=== PATIENT | female | born 2000 | race Caucasian/White ===

== ENCOUNTER 2021-07-04 14:43 | Observation (INO) ==
--- NOTE | 2021-07-04 15:10 | Emergency Department Note ---
Impression & Plan Acute appendicitis with localized peritonitis ED Provider Note NAME: NIKI SABILLON AGE: 20 SEX: F : 2000 ARRIVES VIA: Walk-In INFORMANT: Patient, ED PROVIDER(S): Cory Ramírez MD Chief Complaint: Abdominal pain HPI: Patient presents due to concern for sharp right lower quadrant pain which has been ongoing for several months but is certainly worsened over the last several weeks. The patient states that is been fairly constant. The patient was most recently seen back in May did have a pelvic ultrasound which was unremarkable. The patient states that when she was at home she is also vahe luated by [employer] and had an unremarkable ultrasound at that time as well. Patient states that fiber and Tums make her symptoms worse but that laxatives sometimes improve her symptoms. The patient has had some intermittent constipation type symptoms. Patient denies any dysuria or blood in the urine. Patient does have regular menstrual periods but most recently had her was 3 weeks ago. Patient denies any current vaginal bleeding or discharge. Patient has had nausea secondary to pain but denies any vomiting. The patient states that her pain was significantly worse this morning. Patient denies any recent trauma falls heavy lifting or increased activity. Patient does state that palpation does make it worse. Patient did present May 26 with similar symptoms. States patient's blood work at that time showed a normal white count H&H and platelet count. Kidney function was unremarkable. Urinalysis did not show obvious signs of infection. Patient did have a pelvic ultrasound which showed mildly thickened endometrium as well as small to moderate volume of free fluid in the cul-de-sac nonspecific. There are no acute abnormalities identified at that time. ROS: See HPI for pertinent positives and negatives. A total of 10 systems were reviewed and otherwise negative. Past medical history: See below Surgical history: See below Social history: See below Physical Exam: GENERAL: NAD, wearing a mask, non-toxic. EYE EXAM: Normal conjunctiva. PERRL, no anisocoria and EOM's grossly intact w/o pain. NECK: Supple, no nuchal rigidity, no adenopathy, non-tender. No signs of men ingismus. LUNGS: Clear to auscultation. Normal chest wall mechanics. HEART: NSR, no MRG. ABDOMEN: Abdomen soft, moderate right lower quadrant pain, normo-active bowel sounds, no masses, no rebound or guarding. BACK: No CVA TTP. SKIN: No rashes and no bruising. UPPER EXTREMITIES: Upper extremities are grossly normal. LOWER EXTREMITIES: Grossly normal, no edema. NEURO EXAM: A&O x3, cranial nerves II-XII grossly intact, normal speech, moves all 4 extremities on command w/o issue. Differential diagnoses: Appendicitis, ovarian cyst, ovarian torsion, ectopic , TOA, PID, infections, diverticulitis, UTI, obstruction, mesenteric ischemia, aortic pathology, inflammatory bowel disease, renal colic, PUD, pancreatitis, biliary pathology, hernia, volvulus, constipation, as well as other pathologies. Course: Patient was seen and evaluated the bedside. Full history physical exam was pe rformed. Imaging Studies: See Below Cardiac monitoring: An order was placed for continuous cardiac monitoring. The monitor shows a rate of 67 with sinus rhythm. MDM: Patient presents due to concern for persistent right lower quadrant pain ongoing for several months with the patient has noted it to be acutely worse in the last several days. Blood work was obtained along with CT abdomen pelvis and patient was treated symptomatically with antiemetics, pain medication and IV fluids. Patient is white count of 16 with a normal H&H and platelet count. Kidney function is unremarkable. Very mild hypokalemia. LFTs unremarkable. Urinalysis negative for obvious infection with a negative test. Patient CT does show concern for mild acute appendicitis. The patient was ordered Mefoxin and I did speak with the on-call general surgeon Dr. Tyler. Patient was taken to the operating room for definitive treatment. Past Med/Surg History Medical History Acne Surgical History No pertinent past surgical history Social History Smoking Status: Never smoker Preferred Language: Armenian current occupational status: student Feels Safe at Home: Yes Immunizations: Vaccinated for COVID-19 Allergies Allergies Allergy/AdvReac Type Severity Reaction Status Date / Time No Known Allergies Allergy Unverified 07/04/21 15:31 Home Meds Home Medications Medication Instructions Recorded Confirmed calcium carbonate 300 mg (750 mg) 300 mg PO BID 05/26/21 07/04/21 chewable tablet (Tums) spironolactone 50 mg tablet 50 mg PO QAM 05/26/21 07/04/21 Previous Rx's Medication Instructions Recorded famotidine 20 mg tablet (Pepcid) 20 mg PO BID PRN #60 tab 05/26/21 Results & Data (ED) Vital Signs Vital Signs - 24 hr 07/04/21 14:48 07/04/21 15:20 07/04/21 17:52 Temperature 36.5 C 37.4 C Temperature Source Oral Oral Pulse Rate 97 H 86 Pulse Rate [Apical] Pulse Rate [Finger] 86 106 H Pulse Rhythm [Apical] Pulse Rhythm [Finger] Regular Pulse Strength [Apical] Pulse Strength [Finger] Normal Respiratory Rate 16 12 20 Respiratory Effort / Characteristics Non-Labored Spontaneous Respiratory Depth Normal Respiratory Pattern Regular Blood Pressure 143/89 H Blood Pressure [Left Arm] 146/99 H 111/82 Blood Pressure [Right Arm] Blood Pressure Mean 107 Blood Pressure Mean [Left Arm] 114 91 Blood Pressure Mean [Right Arm] Blood Pressure Position [Left Arm] Semi-fowlers Blood Pressure Position [Right Arm] Pulse Oximetry 99 96 99 Oxygen Delivery Method Room Air Room Air Room Air Oxygen Flow Rate Sepsis Recent Fever Within 48 Hours No Sepsis New/Unexplained Change in Mental Status No Sepsis Action Taken by Nursing No Action Required 07/04/21 19:18 07/04/21 19:20 07/04/21 19:30 Temperature 36.0 C L Temperature Source Temporal Artery Scan Pulse Rate Pulse Rate [Apical] 85 72 59 L Pulse Rate [Finger] Pulse Rhythm [Apical] Regular Regular Regular Pulse Rhythm [Finger] Pulse Strength [Apical] Normal Normal Normal Pulse Strength [Finger] Respiratory Rate 14 16 20 Respiratory Effort / Characteristics Non-Labored Spontaneous Non-Labored Spontaneous Non-Labored Spontaneous Respiratory Depth Normal Normal Normal Respiratory Pattern Regular Regular Regular Blood Pressure Blood Pressure [Left Arm] Blood Pressure [Right Arm] 110/72 117/75 121/82 Blood Pressure Mean Blood Pressure Mean [Left Arm] Blood Pressure Mean [Right Arm] 84 89 95 Blood Pressure Position [Left Arm] Blood Pressure Position [Right Arm] Lying Lying Lying Pulse Oximetry 100 100 100 Oxygen Delivery Method Oxymask Oxymask Oxymask Oxygen Flow Rate 6 6 2 Sepsis Recent Fever Within 48 Hours Sepsis New/Unexplained Change in Mental Status Sepsis Action Taken by Nursing 07/04/21 19:40 07/04/21 19:50 07/04/21 20:00 Temperature 36.7 C Temperature Source Oral Pulse Rate Pulse Rate [Apical] 60 68 65 Pulse Rate [Finger] Pulse Rhythm [Apical] Regular Regular Regular Pulse Rhythm [Finger] Pulse Strength [Apical] Normal Normal Normal Pulse Strength [Finger] Respiratory Rate 16 14 16 Respiratory Effort / Characteristics Non-Labored Spontaneous Non-Labored Spontaneous Non-Labored Spontaneous Respiratory Depth Normal Normal Normal Respiratory Pattern Regular Regular Regular Blood Pressure Blood Pressure [Left Arm] Blood Pressure [Right Arm] 125/80 120/82 123/77 Blood Pressure Mean Blood Pressure Mean [Left Arm] Blood Pressure Mean [Right Arm] 95 94 92 Blood Pressure Position [Left Arm] Blood Pressure Position [Right Arm] Lying Lying Lying Pulse Oximetry 98 98 100 Oxygen Delivery Method Room Air Room Air Room Air Oxygen Flow Rate Sepsis Recent Fever Within 48 Hours Sepsis New/Unexplained Change in Mental Status Sepsis Action Taken by [facility] Medications Current Medication List: was personally reviewed by me Laboratory Data Attestation: I reviewed the patient's lab results. Result diagrams: 07/04/21 15:11 07/04/21 15:11 Lab Results 07/04/21 07/04/21 07/04/21 Range/Units 15:11 15:11 15:11 WBC 16.49 H (4.8-10.8) K/uL RBC 4.80 (4.2-5.4) M/uL Hgb 13.5 (12.0-16.0) g/dL Hct 39.6 (37-47) % MCV 82.5 (80-100) fL MCH 28.1 (25-34) pg MCHC 34.1 (32-36) g/dL RDW Std Deviation 37.6 (36.4-46.3) fL RDW Coeff of Gena 12.5 (11.5-14.5) % Plt Count 270 (130-400) K/uL MPV 11.7 H (7.4-10.4) fL Immature Gran % (Auto) 0.1 % Neut % (Auto) 84.3 % Lymph % (Auto) 10.7 % [place] % (Auto) 4.5 % Eos % (Auto) 0.2 % Baso % (Auto) 0.2 % Neut # (Auto) 13.90 H (1.4-6.5) K/uL Lymph # (Auto) 1.76 (1.2-3.4) K/uL [place] # (Auto) 0.75 H (0.11-0.59) K/uL Eos # (Auto) 0.03 (0-0.5) K/uL Baso # (Auto) 0.03 (0-0.2) K/uL Immature Gran # (Auto) 0.02 (0.00-0.02) K/uL Sodium 135 L (136-145) mmol/L Potassium 3.4 L (3.5-5.1) mmol/L Chloride 101 (98-107) mmol/L Carbon Dioxide 26 (21-32) mmol/L Anion Gap 8 (3-11) BUN 12 (6-23) mg/dl Creatinine 1.00 (0.6-1.2) mg/dl Est Cr Clr Drug Dosing 81.8 ml/min Est GFR ( Amer) 93.3 ml/min Est GFR (Non-Af Amer) 80.5 ml/min BUN/Creatinine Ratio 12.0 (10-20) Glucose 113 H (70-99(Fasting)) mg/dl Calcium 9.1 (8.5-10.1) mg/dl Total Bilirubin 0.4 (0.2-1.0) mg/dl AST 17 (13-39) U/L ALT 11 (7-52) U/L Alkaline Phosphatase 72 (34-104) U/L Total Protein 7.6 (6.0-8.3) gm/dl Albumin 4.7 (3.4-5.0) gm/dl Globulin 2.9 (2.5-4.0) gm/dl Albumin/Globulin Ratio 1.6 (0.9-2) Lipase 17 (11-82) U/L Urine Color Yellow Urine Appearance Clear (Clear) Urine pH 7.0 (4.5-7.5) Ur Specific [place] 1.005 (1.000-1.030) Urine Protein Negative (Negative) Urine Glucose (UA) Negative (Negative) Urine Ketones Negative (Negative) Urine Blood Trace H (Negative) Urine Nitrite Negative (Negative) Urine Bilirubin Negative (Negative) Urine Urobilinogen Negative (Negative) Ur Leukocyte Esterase Negative (Negative) Urine WBC (Auto) 1-5 (0-5) /hpf Urine RBC (Auto) 0-4 (0-4) /hpf U Hyaline Cast (Auto) 1-5 (0-5) /lpf U Epithel Cells (Auto) >30 H (0-5) /lpf Urine Bacteria (Auto) Negative (Negative) Urine Test (Negative) SARS-CoV-2, RNA, NAAT (NEGATIVE) 07/04/21 07/04/21 Range/Units 15:11 17:00 WBC (4.8-10.8) K/uL RBC (4.2-5.4) M/uL Hgb (12.0-16.0) g/dL Hct (37-47) % MCV (80-100) fL MCH (25-34) pg MCHC (32-36) g/dL RDW Std Deviation (36.4-46.3) fL RDW Coeff of Gena (11.5-14.5) % Plt Count (130-400) K/uL MPV (7.4-10.4) fL Immature Gran % (Auto) % Neut % (Auto) % Lymph % (Auto) % [place] % (Auto) % Eos % (Auto) % Baso % (Auto) % Neut # (Auto) (1.4-6.5) K/uL Lymph # (Auto) (1.2-3.4) K/uL [place] # (Auto) (0.11-0.59) K/uL Eos # (Auto) (0-0.5) K/uL Baso # (Auto) (0-0.2) K/uL Immature Gran # (Auto) (0.00-0.02) K/uL Sodium (136-145) mmol/L Potassium (3.5-5.1) mmol/L Chloride (98-107) mmol/L Carbon Dioxide (21-32) mmol/L Anion Gap (3-11) BUN (6-23) mg/dl Creatinine (0.6-1.2) mg/dl Est Cr Clr Drug Dosing ml/min Est GFR ( Amer) ml/min Est GFR (Non-Af Amer) ml/min BUN/Creatinine Ratio (10-20) Glucose (70-99(Fasting)) mg/dl Calcium (8.5-10.1) mg/dl Total Bilirubin (0.2-1.0) mg/dl AST (13-39) U/L ALT (7-52) U/L Alkaline Phosphatase (34-104) U/L Total Protein (6.0-8.3) gm/dl Albumin (3.4-5.0) gm/dl Globulin (2.5-4.0) gm/dl Albumin/Globulin Ratio (0.9-2) Lipase (11-82) U/L Urine Color Urine Appearance (Clear) Urine pH (4.5-7.5) Ur Specific [place] (1.000-1.030) Urine Protein (Negative) Urine Glucose (UA) (Negative) Urine Ketones (Negative) Urine Blood (Negative) Urine Nitrite (Negative) Urine Bilirubin (Negative) Urine Urobilinogen (Negative) Ur Leukocyte Esterase (Negative) Urine WBC (Auto) (0-5) /hpf Urine RBC (Auto) (0-4) /hpf U Hyaline Cast (Auto) (0-5) /lpf U Epithel Cells (Auto) (0-5) /lpf Urine Bacteria (Auto) (Negative) Urine Test Negative (Negative) SARS-CoV-2, RNA, NAAT NEGATIVE (NEGATIVE) Administered Medications Discontinued Medications Bupivacaine HCl (Bupivacaine 0.5 % 5 Mg/1 Ml Mpf 30ml Vial) Confirm Administered Dose 30 ml .ROUTE .STK-MED ONE Stop: 07/04/21 18:19 Last Admin: 07/04/21 19:00 Dose: 30 ml Documented by: [id number] Epinephrine HCl (Epinephrine Inj 1 Mg/Ml Amp) Confirm Administered Dose 1 mg .ROUTE .STK-MED ONE Stop: 07/04/21 18:19 Last Admin: 07/04/21 19:00 Dose: 0.15 mg Documented by: [id number] Sodium Chloride (Nss) 500 mls @ 999 mls/hr IV .Q31M STA Stop: 07/04/21 16:25 Last Infusion: 07/04/21 17:38 Dose: 0 mls/hr Documented by: [id number] Admin: 07/04/21 16:05 Dose: 999 mls/hr Documented by: [id number] Cefoxitin Sodium (Mefoxin) 2,000 mg in 60 mls @ 100 mls/hr IV NOW STA Stop: 07/04/21 17:34 Last Admin: 07/04/21 17:10 Dose: 100 mls/hr Documented by: [id number] Acetaminophen (Ofirmev) 1,000 mg in 100 mls @ 400 mls/hr IV NOW STA Stop: 07/04/21 17:13 Last Infusion: 07/04/21 17:37 Dose: 0 mls/hr Documented by: [id number] Admin: 07/04/21 17:10 Dose: 400 mls/hr Documented by: [id number] Ioversol (Optiray 320 100ml) 95 ml IV ONCE ONE Stop: 07/04/21 16:20 Last Admin: 07/04/21 16:21 Dose: 95 ml Documented by: [id number] Morphine Sulfate (Morphine Sulfate 4 Mg/Ml 1 Ml Carp\Vial) 4 mg IV NOW STA Stop: 07/04/21 15:56 Last Admin: 07/04/21 16:05 Dose: 4 mg Documented by: [id number] Ondansetron HCl (Ondansetron Inj 2 Mg/Ml 2 Ml Vial) 4 mg IV NOW STA Stop: 07/04/21 15:56 Last Admin: 07/04/21 16:05 Dose: 4 mg Documented by: [id number] Imaging Data Radiologist's Impression: Abdomen/Pelvis CT 07/04/21 15:55 CT SCAN OF THE ABDOMEN AND PELVIS WITH IV CONTRAST CLINICAL HISTORY: Right lower quadrant abdominal pain. COMPARISON STUDY: Pelvic ultrasound dated 05/26/2021. TECHNIQUE: Following the IV administration of 95 cc of Optiray 320, CT scan of the abdomen and pelvis is performed from the lung bases to the proximal femora. Images are reviewed in the axial, sagittal, and coronal planes. IV contrast was administered without complication. A dose lowering technique was utilized adhering to the principles of ALARA. CT DOSE: 243.44 mGy.cm FINDINGS: Lung bases: The heart is normal in size and without pericardial effusion. The lung bases are clear. Liver: The contrast-enhanced liver is normal in size, contour, and attenuation. There is no intrahepatic biliary ductal dilatation. The hepatic veins and portal veins are patent. Gallbladder: Unremarkable. Spleen: Normal in size and attenuation. Pancreas: Unremarkable. Adrenal glands: Unremarkable. Kidneys: The contrast enhanced kidneys are normal in size and without hydronephrosis. The kidneys enhance symmetrically. Abdominal vasculature: The abdominal aorta is normal in course and caliber. Bowel: There is no bowel obstruction. Mild fecal retention is seen throughout the colon. The appendix is dilated and fluid-filled measuring up to 1.0 cm as seen on axial image #260. The appendiceal wall is thickened and hyperemic and there is mild pericalyceal inflammation. Findings are consistent with acute appendicitis. There is no organized fluid collection to suggest abscess. Peritoneum: There is no intraperitoneal free air or abdominal ascites. Lymphadenopathy: None. Pelvic viscera: The bladder, uterus, and adnexa are normal as visualized noting bilateral ovarian follicles. An involuting follicle is suggested on the left. Skeletal structures: No lytic or blastic lesions are seen. There is mild lumbar levoscoliosis. IMPRESSION: Findings are consistent with mild acute appendicitis. There is no evidence of abscess or perforation. ACT 112: Negative or not required by law. Electronically signed by: Adriano Oliveira M.D. 07/04/2021 4:43 PM Discharge Plan Visit Data Chief Complaint: Abdominal Pain Stated Complaint: ABDOMINAL PAIN ED Provider: Cory Ramírez Discharge Problem: Acute appendicitis with localized peritonitis Patient Disposition: Admitted As Inpatient Discharge Instructions Interventions: ED Discharge Assessment Last Done: 07/04/21 17:39
[2021-07-04 15:34] LABS: Basophils # (auto) 0.03 K/uL (0-0.2); Basophils % (auto) 0.2 %; Eosinophils # (auto) 0.03 K/uL (0-0.5); Eosinophils % (auto) 0.2 %; Hematocrit (blood only) 39.6 % (37-47); Hemoglobin 13.5 g/dL (12.0-16.0); Immature Granulocytes # (auto) 0.02 K/uL (0.00-0.02); Immature Granulocytes % (auto) 0.1 %; Lymphocytes # (auto) 1.76 K/uL (1.2-3.4); Lymphocytes % (auto) 10.7 %; Mean Corpuscular Hemoglobin 28.1 pg (25-34); Mean Corpuscular Hgb Conc 34.1 g/dL (32-36); Mean Corpuscular Volume 82.5 fL (80-100); Mean Platelet Volume 11.7 fL (7.4-10.4); Monocytes # (auto) 0.75 K/uL (0.11-0.59); Monocytes % (auto) 4.5 %; Neutrophils % (auto) 84.3 %; Platelet Count 270 K/uL (130-400); RDW Coefficient of Variation 12.5 % (11.5-14.5); RDW Standard Deviation 37.6 fL (36.4-46.3); White Blood Count 16.49 K/uL (4.8-10.8)
[2021-07-04 15:37] LABS: Pregnancy Test, Urine Negative (Negative)
[2021-07-04 15:39] LABS: Appearance Urine Clear (Clear); Bacteria Urine Automated Negative (Negative); Bilirubin Urine Negative (Negative); Blood Urine Trace (Negative); Color Urine Yellow; Epithelial Cell Urine Auto >30 /lpf (0-5); Glucose Urine UA Negative (Negative); Ketones Urine Negative (Negative); Leukocyte Esterase Urine Negative (Negative); Nitrite Urine Negative (Negative); Protein Urine Negative (Negative); RBC Urine Automated 0-4 /hpf (0-4); Specific Gravity Urine 1.005 (1.000-1.030); Urobilinogen Urine Negative (Negative)
[2021-07-04] MEDS ORDERED: SODIUM CHLORIDE 0.9% 500 ML IV STA (15:55)
[2021-07-04] MEDS ORDERED: MoRPHine SULFATE 4 MG/ML 1 ML CARP\\VIAL IV STA (15:55)
[2021-07-04] MEDS ORDERED: ONDANSETRON INJ 2 MG/ML 2 ML VIAL IV STA (15:55)
[2021-07-04 16:00] LABS: Albumin Globulin Ratio 1.6 (0.9-2); Albumin Level 4.7 gm/dl (3.4-5.0); Bilirubin,Total 0.4 mg/dl (0.2-1.0); Calcium 9.1 mg/dl (8.5-10.1); Creatinine Clr Calc Pharmacy 81.8 ml/min; Est GFR (African American) 93.3 ml/min; Est GFR (Non-African American) 80.5 ml/min; Globulin 2.9 gm/dl (2.5-4.0); Potassium 3.4 mmol/L (3.5-5.1); Total Protein 7.6 gm/dl (6.0-8.3)
[2021-07-04] MEDS ORDERED: OPTIRAY 320 100ml IV ONE (16:19)
--- NOTE | 2021-07-04 16:44 | CT Scan Report ---
CT SCAN OF THE ABDOMEN AND PELVIS WITH IV CONTRAST CLINICAL HISTORY: Right lower quadrant abdominal pain. COMPARISON STUDY: Pelvic ultrasound dated 05/26/2021. TECHNIQUE: Following the IV administration of 95 cc of Optiray 320, CT scan of the abdomen and pelvi s is performed from the lung bases to the proximal femora. Images are reviewed in the axial, sagittal , and coronal planes. IV contrast was administered without complication. A dose lowering technique wa s utilized adhering to the principles of ALARA. CT DOSE: 243.44 mGy.cm FINDINGS: Lung bases: The heart is normal in size and without pericardial effusion. The lung bases are clear. Liver: The contrast-enhanced liver is normal in size, contour, and attenuation. There is no intrahepa tic biliary ductal dilatation. The hepatic veins and portal veins are patent. Gallbladder: Unremarkable. Spleen: Normal in size and attenuation. Pancreas: Unremarkable. Adrenal glands: Unremarkable. Kidneys: The contrast enhanced kidneys are normal in size and without hydronephrosis. The kidneys enh ance symmetrically. Abdominal vasculature: The abdominal aorta is normal in course and caliber. Bowel: There is no bowel obstruction. Mild fecal retention is seen throughout the colon. The appendix is dilated and fluid-filled measuring up to 1.0 cm as seen on axial image #260. The appendiceal wal l is thickened and hyperemic and there is mild pericalyceal inflammation. Findings are consistent wit h acute appendicitis. There is no organized fluid collection to suggest abscess. Peritoneum: There is no intraperitoneal free air or abdominal ascites. Lymphadenopathy: None. Pelvic viscera: The bladder, uterus, and adnexa are normal as visualized noting bilateral ovarian fol licles. An involuting follicle is suggested on the left. Skeletal structures: No lytic or blastic lesions are seen. There is mild lumbar levoscoliosis. IMPRESSION: Findings are consistent with mild acute appendicitis. There is no evidence of abscess or perforation. ACT 112: Negative or not required by law. Electronically signed by: Adriano Oliveira M.D. 07/04/2021 4:43 PM
[2021-07-04] MEDS ORDERED: cefOXitin 2,000 MG/60 ML BAG IV STA (16:59)
[2021-07-04] MEDS ORDERED: ACETAMINOPHEN 1,000 MG/100 ML VIAL IV STA (16:59)
--- NOTE | 2021-07-04 17:48 | Anesthesiology Consultation ---
Date of Service July 04, 2021 Assessment & Plan Chart Review Chart Review: Acceptable Risk for Surgery and Patient NOT seen in Pre Admission Testing Consults Requested none ASA [id number] Proposed Anesthesia Anesthesia Type: General History Surgery Operation Date: 07/04/21 13:55 Proposed Procedures p Laparoscopic Appendectomy - Adam Tyler MD Height/Weight Height: 5 ft 3 in Weight: 67 kg Allergies Allergy/AdvReac Type Severity Reaction Status Date / Time No Known Allergies Allergy Unverified 07/04/21 15:31 Medications Home Medications Medication Instructions Recorded Confirmed Last Taken calcium carbonate 300 mg (750 mg) 300 mg PO BID 05/26/21 07/04/21 05/26/21 chewable tablet (Tums) famotidine 20 mg tablet (Pepcid) 20 mg PO BID PRN #60 tab 05/26/21 07/04/21 Unknown spironolactone 50 mg tablet 50 mg PO QAM 05/26/21 07/04/21 05/12/21 Past Medical History Medical History Acne Exercise / Class Metabolic Activity 1 > 8 Run/Swim/Ski/Tennis Past Surgical History Surgical History No pertinent past surgical history Past Anesthesia History No Hx of Anesthesia Complications and No Family Hx of Anesthesia Complications History of PONV No Hx of PONV and No Hx of Motion Sickness Social History Smoking Status: Never smoker Physical Exam Vital Signs Last Vital Signs Temp 36.5 C 07/04/21 14:48 Pulse 86 07/04/21 15:20 Resp 12 07/04/21 15:20 BP 146/99 H 07/04/21 15:20 Pulse Ox 96 07/04/21 15:20 Testing Laboratory Results 07/04/21 15:11 07/04/21 15:11 Urine Color Yellow 07/04/21 15:11 Urine Appearance Clear (Clear) 07/04/21 15:11 Urine pH 7.0 (4.5-7.5) 07/04/21 15:11 Ur Specific [place] 1.005 (1.000-1.030) 07/04/21 15:11 Urine Protein Negative (Negative) 07/04/21 15:11 Urine Glucose (UA) Negative (Negative) 07/04/21 15:11 Urine Ketones Negative (Negative) 07/04/21 15:11 Urine Nitrite Negative (Negative) 07/04/21 15:11 Ur Leukocyte Esterase Negative (Negative) 07/04/21 15:11 Urine WBC (Auto) 1-5 /hpf (0-5) 07/04/21 15:11 Urine RBC (Auto) 0-4 /hpf (0-4) 07/04/21 15:11 U Hyaline Cast (Auto) 1-5 /lpf (0-5) 07/04/21 15:11 U Epithel Cells (Auto) >30 /lpf (0-5) H 07/04/21 15:11 Urine Bacteria (Auto) Negative (Negative) 07/04/21 15:11 Urine Test Negative (Negative) 07/04/21 15:11 07/04/21 15:11 Urine Test Negative
--- NOTE | 2021-07-04 17:58 | History & Physical Report ---
Date of Service July 04, 2021 Assessment & Plan (1) Acute appendicitis with localized peritonitis: Plan: 20-year-old woman presents with acute appendicitis. I discussed the risks and benefits of a laparoscopic, possible open appendectomy. All her questions were answered, and she is agreeable to proceed. We will place her on IV antibiotics and IV fluids. We will take her to the operating room at the earliest convenience. History of Present Illness Primary Care Provider: [facility] 20-year-old woman presents with 3-month history of intermittent right lower quadrant abdominal pain. She states that it acutely worsened this morning. She has been seen for this in the past and it vaginal ultrasound was negative. She denies nausea or vomiting. She ate at 1:00. She denies changes in bowel habits. She denies fevers, however she states that she sometimes has chills with the episodes of pain. White blood cell count is 16. CT scan demonstrates acute appendicitis. Allergies Allergy/AdvReac Type Severity Reaction Status Date / Time No Known Allergies Allergy Unverified 07/04/21 15:31 Home Medications Medication Instructions Recorded Confirmed Type calcium carbonate 300 mg (750 mg) 300 mg PO BID 05/26/21 07/04/21 History chewable tablet (Tums) famotidine 20 mg tablet (Pepcid) 20 mg PO BID PRN #60 tab 05/26/21 07/04/21 Rx spironolactone 50 mg tablet 50 mg PO QAM 05/26/21 07/04/21 History Past Med/Surg History Medical History Acne Surgical History No pertinent past surgical history Social History Smoking Status: Never smoker Preferred Language: Gabonese current occupational status: student Feels Safe at Home: Yes Review of Systems Review of Systems: All systems reviewed & are unremarkable except as noted in HPI & below Physical Exam Constitutional: WD/WN, vitals as above Neck: trachea midline, no thyromegaly Respiratory: normal respiratory effort, lungs clear to auscultation Cardiovascular: RRR, no murmur, no edema Gastrointestinal (Abdomen): Inspection/Auscultation: abdomen normal to inspection; abdomen not distended Percussion/Palpation: + abdomen tender (Right lower quadrant, left lower quadrant) and abdomen soft; no guarding and abdomen not rigid Musculoskeletal: Extremities: no cyanosis and no clubbing Skin: no rashes, warm and dry Psychiatric: A+Ox3, euthymic affect Results & Data Results & Data ([facility]) Vital Signs (Past 12 Hours) Vital Signs Temp Pulse Pulse Resp BP BP Pulse Ox 07/04/21 15:20 86 86 12 146/99 H 96 07/04/21 14:48 36.5 C 97 H 16 143/89 H 99 Laboratory Results 07/04/21 07/04/21 07/04/21 Range/Units 17:00 15:11 15:11 WBC (4.8-10.8) K/uL RBC (4.2-5.4) M/uL Hgb (12.0-16.0) g/dL Hct (37-47) % MCV (80-100) fL MCH (25-34) pg MCHC (32-36) g/dL RDW Std Deviation (36.4-46.3) fL RDW Coeff of Gena (11.5-14.5) % Plt Count (130-400) K/uL MPV (7.4-10.4) fL Immature Gran % (Auto) % Neut % (Auto) % Lymph % (Auto) % [place] % (Auto) % Eos % (Auto) % Baso % (Auto) % Neut # (Auto) (1.4-6.5) K/uL Lymph # (Auto) (1.2-3.4) K/uL Greer # (Auto) (0.11-0.59) K/uL Eos # (Auto) (0-0.5) K/uL Baso # (Auto) (0-0.2) K/uL Immature Gran # (Auto) (0.00-0.02) K/uL Sodium (136-145) mmol/L Potassium (3.5-5.1) mmol/L Chloride (98-107) mmol/L Carbon Dioxide (21-32) mmol/L Anion Gap (3-11) BUN (6-23) mg/dl Creatinine (0.6-1.2) mg/dl Est Cr Clr Drug Dosing ml/min Est GFR ( Amer) ml/min Est GFR (Non-Af Amer) ml/min BUN/Creatinine Ratio (10-20) Glucose (70-99(Fasting)) mg/dl Calcium (8.5-10.1) mg/dl Total Bilirubin (0.2-1.0) mg/dl AST (13-39) U/L ALT (7-52) U/L Alkaline Phosphatase (34-104) U/L Total Protein (6.0-8.3) gm/dl Albumin (3.4-5.0) gm/dl Globulin (2.5-4.0) gm/dl Albumin/Globulin Ratio (0.9-2) Lipase (11-82) U/L Urine Color Yellow Urine Appearance Clear (Clear) Urine pH 7.0 (4.5-7.5) Ur Specific [place] 1.005 (1.000-1.030) Urine Protein Negative (Negative) Urine Glucose (UA) Negative (Negative) Urine Ketones Negative (Negative) Urine Blood Trace H (Negative) Urine Nitrite Negative (Negative) Urine Bilirubin Negative (Negative) Urine Urobilinogen Negative (Negative) Ur Leukocyte Esterase Negative (Negative) Urine WBC (Auto) 1-5 (0-5) /hpf Urine RBC (Auto) 0-4 (0-4) /hpf U Hyaline Cast (Auto) 1-5 (0-5) /lpf U Epithel Cells (Auto) >30 H (0-5) /lpf Urine Bacteria (Auto) Negative (Negative) Urine Test Negative (Negative) SARS-CoV-2, RNA, NAAT NEGATIVE (NEGATIVE) 07/04/21 07/04/21 Range/Units 15:11 15:11 WBC 16.49 H (4.8-10.8) K/uL RBC 4.80 (4.2-5.4) M/uL Hgb 13.5 (12.0-16.0) g/dL Hct 39.6 (37-47) % MCV 82.5 (80-100) fL MCH 28.1 (25-34) pg MCHC 34.1 (32-36) g/dL RDW Std Deviation 37.6 (36.4-46.3) fL RDW Coeff of Gena 12.5 (11.5-14.5) % Plt Count 270 (130-400) K/uL MPV 11.7 H (7.4-10.4) fL Immature Gran % (Auto) 0.1 % Neut % (Auto) 84.3 % Lymph % (Auto) 10.7 % Greer % (Auto) 4.5 % Eos % (Auto) 0.2 % Baso % (Auto) 0.2 % Neut # (Auto) 13.90 H (1.4-6.5) K/uL Lymph # (Auto) 1.76 (1.2-3.4) K/uL [place] # (Auto) 0.75 H (0.11-0.59) K/uL Eos # (Auto) 0.03 (0-0.5) K/uL Baso # (Auto) 0.03 (0-0.2) K/uL Immature Gran # (Auto) 0.02 (0.00-0.02) K/uL Sodium 135 L (136-145) mmol/L Potassium 3.4 L (3.5-5.1) mmol/L Chloride 101 (98-107) mmol/L Carbon Dioxide 26 (21-32) mmol/L Anion Gap 8 (3-11) BUN 12 (6-23) mg/dl Creatinine 1.00 (0.6-1.2) mg/dl Est Cr Clr Drug Dosing 81.8 ml/min Est GFR ( Amer) 93.3 ml/min Est GFR (Non-Af Amer) 80.5 ml/min BUN/Creatinine Ratio 12.0 (10-20) Glucose 113 H (70-99(Fasting)) mg/dl Calcium 9.1 (8.5-10.1) mg/dl Total Bilirubin 0.4 (0.2-1.0) mg/dl AST 17 (13-39) U/L ALT 11 (7-52) U/L Alkaline Phosphatase 72 (34-104) U/L Total Protein 7.6 (6.0-8.3) gm/dl Albumin 4.7 (3.4-5.0) gm/dl Globulin 2.9 (2.5-4.0) gm/dl Albumin/Globulin Ratio 1.6 (0.9-2) Lipase 17 (11-82) U/L Urine Color Urine Appearance (Clear) Urine pH (4.5-7.5) Ur Specific [place] (1.000-1.030) Urine Protein (Negative) Urine Glucose (UA) (Negative) Urine Ketones (Negative) Urine Blood (Negative) Urine Nitrite (Negative) Urine Bilirubin (Negative) Urine Urobilinogen (Negative) Ur Leukocyte Esterase (Negative) Urine WBC (Auto) (0-5) /hpf Urine RBC (Auto) (0-4) /hpf U Hyaline Cast (Auto) (0-5) /lpf U Epithel Cells (Auto) (0-5) /lpf Urine Bacteria (Auto) (Negative) Urine Test (Negative) SARS-CoV-2, RNA, NAAT (NEGATIVE) Diagnostic Findings CT SCAN OF THE ABDOMEN AND PELVIS WITH IV CONTRAST CLINICAL HISTORY: Right lower quadrant abdominal pain. COMPARISON STUDY: Pelvic ultrasound dated 05/26/2021. TECHNIQUE: Following the IV administration of 95 cc of Optiray 320, CT scan of the abdomen and pelvis is performed from the lung bases to the proximal femora. Images are reviewed in the axial, sagittal, and coronal planes. IV contrast was administered without complication. A dose lowering technique was utilized adhering to the principles of ALARA. CT DOSE: 243.44 mGy.cm FINDINGS: Lung bases: The heart is normal in size and without pericardial effusion. The lung bases are clear. Liver: The contrast-enhanced liver is normal in size, contour, and attenuation. There is no intrahepatic biliary ductal dilatation. The hepatic veins and portal veins are patent. Gallbladder: Unremarkable. Spleen: Normal in size and attenuation. Pancreas: Unremarkable. Adrenal glands: Unremarkable. Kidneys: The contrast enhanced kidneys are normal in size and without hydronephrosis. The kidneys enhance symmetrically. Abdominal vasculature: The abdominal aorta is normal in course and caliber. Bowel: There is no bowel obstruction. Mild fecal retention is seen throughout the colon. The appendix is dilated and fluid-filled measuring up to 1.0 cm as seen on axial image #260. The appendiceal wall is thickened and hyperemic and there is mild pericalyceal inflammation. Findings are consistent with acute appendicitis. There is no organized fluid collection to suggest abscess. Peritoneum: There is no intraperitoneal free air or abdominal ascites. Lymphadenopathy: None. Pelvic viscera: The bladder, uterus, and adnexa are normal as visualized noting bilateral ovarian follicles. An involuting follicle is suggested on the left. Skeletal structures: No lytic or blastic lesions are seen. There is mild lumbar levoscoliosis. IMPRESSION: Findings are consistent with mild acute appendicitis. There is no evidence of abscess or perforation.
[2021-07-04] MEDS ORDERED: ATROPINE SULFATE 0.1 MG/ML 10ML SYR IV PRN (18:07)
[2021-07-04] MEDS ORDERED: HYDROmorphone INJ 1 MG/ML SYRINGE IV PRN (18:07)
[2021-07-04] MEDS ORDERED: fentaNYL citrate 100 MCG/2 ML VIAL IV PRN (18:07)
[2021-07-04] MEDS ORDERED: PROMETHAZINE HCL 12.5 MG in SODIUM CHLORIDE 0.9% 50 ML IV PRN ×2 (18:07→20:32)
[2021-07-04] MEDS ORDERED: ONDANSETRON INJ 2 MG/ML 2 ML VIAL IV PRN ×2 (18:07→20:32)
[2021-07-04] MEDS ORDERED: ePHEDrine sulfate 50 MG/ML AMP IV PRN (18:07)
[2021-07-04] MEDS ORDERED: NALOXONE HCL 0.4 MG/1 ML VIAL/CARP IV PRN (18:07)
[2021-07-04] MEDS ORDERED: FLUMAZENIL 0.1 MG/1 ML 10 ML VIAL IV PRN (18:07)
[2021-07-04] MEDS ORDERED: MIDAZOLAM HCL 1 MG/ML 2ML VIAL ONE (18:08)
[2021-07-04] MEDS ORDERED: fentaNYL citrate 100 MCG/2 ML VIAL ONE (18:08)
[2021-07-04] MEDS ORDERED: EPINEPHrine INJ 1 MG/ML AMP ONE (18:18)
[2021-07-04] MEDS ORDERED: BUPIVACAINE 0.5 % 5 MG/1 ML MPF 30ML VIAL ONE (18:18)
[2021-07-04] MEDS ORDERED: LARYING-O-JET KIT (LTA) ONE (18:29)
[2021-07-04] MEDS ORDERED: ROCURONIUM BROMIDE 10 MG/ML 5 ML VIAL IV ONE (18:29)
[2021-07-04] MEDS ORDERED: NEOSTIGMINE METHYLSULFATE 1 MG/ML 10ML VIAL ONE (18:29)
[2021-07-04] MEDS ORDERED: ONDANSETRON INJ 2 MG/ML 2 ML VIAL ONE (18:29)
[2021-07-04] MEDS ORDERED: SUCCINYLCHOLINE CHLORIDE 20 MG/ML 10 ML VIAL IV ONE (18:29)
[2021-07-04] MEDS ORDERED: DEXAMETHASONE SOD INJ 4 MG/ML VIAL ONE (18:29)
[2021-07-04] MEDS ORDERED: PROPOFOL IV EMULSION 10 MG/ML 20 ML VIAL IV ONE (18:29)
[2021-07-04] MEDS ORDERED: KETOROLAC 30 MG/ML VIAL ONE (18:29)
[2021-07-04] MEDS ORDERED: LIDOCAINE 2% 2 ML VIAL/AMP(20MG/ML) INFIL ONE (18:29)
[2021-07-04] MEDS ORDERED: GLYCOPYRROLATE 0.2 MG/ML VIAL ONE (18:29)
--- NOTE | 2021-07-04 19:09 | Post Operative Brief Note ---
Immediate Post Op Note v1 Date of Surgery July 04, 2021 Pre & Post Diagnosis Operation Date: 07/04/21 13:55 Pre-Op Diagnosis: Acute appendicitis with localized peritonitis Post-Op Diagnosis: Acute appendicitis with localized peritonitis I identified the patient and participated in the time-out.: Yes Procedure Operation Date: 07/04/21 13:55 Actual Procedures p Laparoscopic Appendectomy(Not Applicable) - Adam Tyler MD Surgeon Adam Tyler MD Clinical Exercise Physiologist none Estimated Blood Loss 5 Findings Consistent with Post-Op Diagnosis
--- NOTE | 2021-07-04 19:13 | Operative Report ---
Post Operative Report Pre & Post Diagnosis Operation Date: 07/04/21 13:55 Pre-Op Diagnosis: Acute appendicitis with localized peritonitis Post-Op Diagnosis: Acute appendicitis with localized peritonitis I identified the patient and participated in the time-out.: Yes Procedure Operation Date: 07/04/21 13:55 Actual Procedures p Laparoscopic Appendectomy(Not Applicable) - Adam Tyler MD Surgeon Adam Tyler MD Paper Stripper none Estimated Blood Loss 5 Findings Consistent with Post-Op Diagnosis Acute appendicitis Specimens Appendix Anesthesia Type General Complications No immediate complications Description of Procedure The patient was taken to the operating room, and placed supine on the operating table. A timeout was performed, perioperative antibiotics were administered, SCD boots were placed. After adequate anesthesia and analgesia was obtained, the abdomen was prepped and draped in the normal sterile fashion. A 1 cm incision was made in the supraumbilical region and carried down to the level of the fascia. A trach hook was used to grasp the fascia and elevated and a varies needle was used to enter the abdominal cavity. The abdomen was insufflated to a pressure of 15 mmHg, and a 5 mm trocar was placed in this location. A 5 mm 30 degree laparoscope was placed into the abdominal cavity, and the abdomen was surveyed. The patient was placed in Trendelenburg and slightly to the left. One 5 mm trocar was placed in the right upper quadrant, and one 12 mm trocar was placed in the left lower quadrant under direct visualization. The right colon was identified and traced down to the cecum. The appendix was identified and elevated anteriorly and medially. The appendix was retrocecal, and some dissection with the scissor cautery and blunt dissection was needed to elevate the appendix. A window was created at the base of the appendix with a [place] dissector. The Endo JUSTINA stapler was used to transect the appendix at its base through noninflamed tissue, and subsequently the mesoappendix. The appendix was placed in an Endo Catch bag, and removed via the left lower quadrant port site. Attention was turned to hemostasis, which was excellent. The abdomen was copiously irrigated and suctioned free, and again hemostasis was found to be excellent. All trochars removed under direct visualization. The abdomen was desufflated. The fascia in the 12 mm port site was closed with a 0 Vicryl sut ure. The skin was closed with a running 4-0 Monocryl subcuticular stitch. Dermabond was applied. The patient tolerated the procedure without complication, and was transferred in stable condition to the PACU. All instrument, needle, and sponge counts were correct at the end of the case. I attest to the content of the Intraoperative Record and any orders documented therein. Any exceptions are noted below.
--- NOTE | 2021-07-04 20:28 | Anesthesiology Progress Note ---
Date of Service July 04, 2021 Anesthesia Post Procedure Vital Signs Vital Signs: Temp Pulse Pulse Pulse Resp BP BP 07/04/21 20:00 65 16 07/04/21 19:50 36.7 C 68 14 07/04/21 19:40 60 16 07/04/21 19:30 59 L 20 07/04/21 19:20 72 16 07/04/21 19:18 36.0 C L 85 14 07/04/21 17:52 37.4 C 106 H 20 111/82 07/04/21 15:20 86 86 12 146/99 H 07/04/21 14:48 36.5 C 97 H 16 143/89 H BP Pulse Ox 07/04/21 20:00 123/77 100 07/04/21 19:50 120/82 98 07/04/21 19:40 125/80 98 07/04/21 19:30 121/82 100 07/04/21 19:20 117/75 100 07/04/21 19:18 110/72 100 07/04/21 17:52 99 07/04/21 15:20 96 07/04/21 14:48 99 Transfer of Care Handoff Completed per policy Notes Mental Status: alert / awake / arousable and participated in evaluation Patient Amnestic to Procedure: Yes Nausea / Vomiting: adequately controlled Pain: adequately controlled Airway Patency, RR, SpO2: stable & adequate BP & HR: stable & adequate Hydration State: stable & adequate Anesthetic Complications: no major complications apparent
[2021-07-04] MEDS ORDERED: oxyCODONE/ACETAMINOPHEN 5mg/325mg TAB PO PRN (20:32)
[2021-07-04] MEDS ORDERED: MoRPHine SULFATE 2 MG/ML CARP IV PRN (20:32)
[2021-07-04] MEDS ORDERED: diphenhydrAMINE 50 MG/ML VIAL IV PRN (20:32)
[2021-07-04] MEDS: KETOROLAC 30 MG/ML VIAL IV PRN (22:43)
[2021-07-05] MEDS: LACTATED RINGER'S 1,000 ML IV SCH ×2 (05:51→17:25)
[2021-07-05] MEDS: KETOROLAC 30 MG/ML VIAL IV PRN ×2 (06:21→15:34)
[2021-07-05] MEDS ORDERED: ENOXAPARIN INJ 40 MG/0.4 ML SYR SQ SCH (08:00)
[2021-07-05] MEDS ORDERED: traMADol HCL 50 MG TABLET PO PRN (09:19)
--- NOTE | 2021-07-05 09:19 | Surgery Progress Note ---
Date of Service July 05, 2021 Assessment & Plan (1) Acute appendicitis with localized peritonitis: Plan: Postop day #1 status post laparoscopic appendectomy Afebrile, vital signs stable, Postop pain moderate and somewhat controlled No nausea no vomiting Plan: We will add p.o. tramadol as needed for pain Continue clear liquids advance diet as tolerated Encourage ambulation Encourage incentive spirometry Likely discharge later today Dr. Tyler has seen and examined patient and agrees with above. Admission and Anticipated Discharge Date Admission Date: July 04, 2021 Subjective Having a little pain. Was nervous about taking narcotic pain medication. She had Toradol earlier this morning. No nausea no vomiting Has not had much to eat yet Urinating without difficulty Has not been out of bed much Physical Exam Constitutional: WD/WN, vitals as above no acute distress and not ill appearing Neck: normal visual inspection and trachea midline Respiratory: normal respiratory effort; no respiratory distress Gastrointestinal (Abdomen): Inspection/Auscultation: abdomen normal to inspection and + abdominal surgical incision (Clean, dry, intact with Dermabond); abdomen not distended Percussion/Palpation: + abdomen tender (Surgical incisions in right lower quadrant) and abdomen soft; no guarding and abdomen not rigid Skin: no rashes, warm and dry Psychiatric: A+Ox3, euthymic affect Results & Data ([facility]) Vital Signs (Past 12 Hours) Vital Signs Temp Pulse Resp BP Pulse Ox 07/05/21 07:05 37 C 97 H 16 105/66 98 07/05/21 03:28 36.7 C 85 16 101/63 98 07/04/21 22:15 36.7 C 81 16 102/67 97 (1) Acute appendicitis with localized peritonitis Appendicitis abscess presence: without abscess Appendicitis gangrene presence: without gangrene Appendicitis perforation presence: without perforation Qualified Code(s): K35.30 - Acute appendicitis with localized peritonitis, without perforation or gangrene
[2021-07-05] MEDS ORDERED: ACETAMINOPHEN 325 MG TAB PO PRN (09:20)
== END 2021-07-05 18:05 | disposition home or self-care (01) ==
LOC: ED 14:43 → OR 17:39 → 3N 17:39